=== PATIENT | male | born 1980 | race African-American/Black ===

== ENCOUNTER 2016-11-29 07:43 | Emergency (ER) | payer BC, OTHER ==
[2016-11-29] MEDS ORDERED: BENZONATATE 100 MG CAPSULE PO STA (09:37)
[2016-11-29] MEDS ORDERED: guaiFENesin/DEXTROMETHORPHAN 10 ML UDC PO STA (09:37)
[2016-11-29] MEDS ORDERED: guaiFENesin/DEXTROMETHORPHAN 10 ML UDC ONE (09:40)
[2016-11-29] MEDS ORDERED: BENZONATATE 100 MG CAPSULE PO ONE (09:40)
--- NOTE | 2016-11-29 09:40 | ED Physician Documentation ---
History of Present Illness - Stated complaint Stated Complaint: COUGH - Chief complaint Chief Complaint: General - Additonal information Additional information: hx from pt healthy 36 y/o male cough for 3 weeks pleuritic CP with coughing no fever sore throat [place] kids have stomach flu but no resp sick contacts no travel no leg swelling no PMD Review of Systems Constitutional: denies: Fever, Chills Throat: denies: Sore throat Cardiac: reports: Chest pain / pressure Respiratory: reports: Dyspnea, Cough GI: denies: Abdominal Pain, Nausea, Vomiting, Diarrhea Musculoskeletal: denies: Extremity swelling Endocrine: denies: Easy bruising / bleeding Immunocompromised: denies: Immunocompromised PD PAST MEDICAL HISTORY - Present Medications Home Medications: Ambulatory Orders Medication Instructions Recorded Confirmed Benzonatate [Tessalon] 100 mg PO TID PRN #20 capsule 11/29/16 guaiFENesin/CODEINE [Robitussin AC] 5 - 10 ml PO Q6H PRN #120 udc 11/29/16 - Allergies Allergies/Adverse Reactions: Allergies Allergy/AdvReac Type Severity Reaction Status Date / Time No Known Drug Allergies Allergy Verified 11/29/16 07:52 PD ED PE NORMAL - Vitals Vital signs reviewed: Yes - HEENT HEENT: Atraumatic, Pharynx benign - Neck Neck: Supple, no meningeal sign - Cardiac Cardiac: RRR - Respiratory Respiratory: No respiratory distress, Clear bilaterally - Abdomen Abdomen: Soft, Non tender - Derm Derm: Normal color - Extremities Extremities: Normal ROM s pain, No edema, No calf tenderness / cord - Neuro Neuro: Alert and oriented X 3 Results - Vitals Vitals: Vital Signs - 24 hr 11/29/16 07:50 Temperature 36.7 C Heart Rate 78 Respiratory 14 Rate Blood Pressure 158/81 H O2 Saturation 100 Oxygen O2 Source Room air - Rads (name of study) CXR Radiology: See rad report (neg) PD MEDICAL DECISION MAKING - ED course ED course: no leg pain swelling tachycardia tachypnea hypoxia etc to suggest PE this sounds like a viral infection Departure - Departure Disposition: 01 Home, Self Care Clinical Impression: Bronchitis Condition: Good Instructions: ED URI Viral Prescriptions: guaiFENesin/CODEINE [Robitussin AC] 5 - 10 ml PO Q6H PRN #120 udc PRN Reason: Cough Benzonatate [Tessalon] 100 mg PO TID PRN #20 capsule PRN Reason: to ease cough Comments: The xray was fine - no pneumonia This is likely a viral bronchitis and the symptoms can last for up to a month Being a viral process does not make you any less sick but it means antibiotics will not help Recommend motrin for the pain and any fever and I have prescribed medications to ease your cough Please stop smoking And follow up with your PMD for a blood pressure recheck - it was high today Forms: Activity restrictions
--- NOTE | 2016-11-29 10:23 | XRAY Preliminary Report ---
Exam: XR Chest 2 View PA/LAT IMPRESSION: Normal 2-view chest radiography. [facility] SITE ID: [id number]
--- NOTE | 2016-11-29 10:25 | XRAY Report ---
EXAM: CHEST RADIOGRAPHY EXAM DATE: 11/29/2016 09:49 AM. CLINICAL HISTORY: Cough. COMPARISON: None. TECHNIQUE: 2 views. FINDINGS: Lungs/Pleura: No focal opacities evident. No pleural effusion. No pneumothorax. Normal volumes. Mediastinum: Heart and mediastinal contours are unremarkable. Other: None. IMPRESSION: Normal 2-view chest radiography. [facility] Referring Provider Line: [phone] SITE ID: [id number]
[2016-11-29 10:52] VITALS: BP 138/77
== END 2016-11-29 10:58 | disposition home or self-care (01) ==
LOC: ED 07:43
DX: J40 Bronchitis, not specified as acute or chronic (principal)
CPT/HCPCS: 71020; 99283; A9270

== ENCOUNTER 2018-02-23 19:23 | Emergency (ER) | payer BC, OTHER ==
[2018-02-23 19:51] LABS: BASOPHILS # (AUTO) 0.1 10^3/uL (0.0-0.1); BASOPHILS % (AUTO) 0.7 %; EOSINOPHILS # (AUTO) 0.2 10^3/uL (0.0-0.7); HGB - HEMOGLOBIN 13.9 g/dL (14.0-18.0); LYMPHOCYTES # (AUTO) 3.2 10^3/uL (1.5-3.5); LYMPHOCYTES % (AUTO) 36.6 %; MEAN CORPUSCULAR HEMOGLOBIN 28.9 pg (27.0-31.0); MEAN CORPUSCULAR HGB CONC 34.5 g/dL (32.0-36.0); MEAN CORPUSCULAR VOLUME 83.8 fL (80.0-94.0); MEAN PLATELET VOLUME 9.8 fL (7.4-11.4); MONOCYTES # (AUTO) 0.6 10^3/uL (0.0-1.0); MONOCYTES % (AUTO) 7.2 %; NEUTROPHILS # (AUTO) 4.7 10^3/uL (1.5-6.6); NEUTROPHILS % (AUTO) 53.5 %; PLT - PLATELET COUNT 162 10^3/uL (130-450); RED BLOOD COUNT 4.81 10^6/uL (4.70-6.10); RED CELL DISTRIBUTION WIDTH 13.3 % (12.0-15.0); WHITE BLOOD COUNT 8.7 x10^3/uL (4.8-10.8)
[2018-02-23 20:16] LABS: ALBUMIN 5.2 g/dL (3.2-5.5); ALBUMIN/GLOBULIN RATIO 1.7 (1.0-2.2); CALCIUM 10.2 mg/dL (8.5-10.3); CREATININE 1.5 mg/dL (0.6-1.2); TOTAL PROTEIN 8.3 g/dL (6.7-8.2)
--- NOTE | 2018-02-23 22:40 | ED Physician Documentation ---
PD HPI CHEST PAIN - Stated complaint Stated Complaint: CP/FEELS OFF - Chief complaint Chief Complaint: Cardiac PD PAST MEDICAL HISTORY - Past Medical History Psych: Anxiety - Past Surgical History Past Surgical History: No - Social History Does the pt smoke?: Yes Smoking Status: Current some day smoker Does the pt drink ETOH?: No Does the pt have substance abuse?: No - Immunizations Immunizations are current?: No - POLST Patient has POLST: No - Present Medications Home Medications: Ambulatory Orders Medication Instructions Recorded Confirmed Benzonatate [Tessalon] 100 mg PO TID PRN #20 capsule 11/29/16 guaiFENesin/CODEINE [Robitussin AC] 5 - 10 ml PO Q6H PRN #120 udc 11/29/16 - Allergies Allergies/Adverse Reactions: Allergies Allergy/AdvReac Type Severity Reaction Status Date / Time No Known Drug Allergies Allergy Verified 02/23/18 19:35 - Vitals Vitals: Oxygen O2 Source Room air - Labs Labs: Laboratory Tests 02/23/18 02/23/18 02/23/18 19:48 19:48 19:48 WBC 8.7 RBC 4.81 Hgb 13.9 L Hct 40.3 L MCV 83.8 MCH 28.9 MCHC 34.5 RDW 13.3 Plt Count 162 MPV 9.8 Neut # (Auto) 4.7 Lymph # (Auto) 3.2 [place] # (Auto) 0.6 Eos # (Auto) 0.2 Baso # (Auto) 0.1 Absolute Nucleated RBC 0.01 Nucleated RBC % 0.1 Sodium 138 Potassium 3.8 Chloride 99 L Carbon Dioxide 29 Anion Gap 10.0 BUN 18 Creatinine 1.5 H Estimated GFR (MDRD) 64 L Glucose 88 Calcium 10.2 Total Bilirubin 2.0 H AST 46 H ALT 35 Alkaline Phosphatase 59 Troponin I < 0.04 Total Protein 8.3 H Albumin 5.2 Globulin 3.1 Albumin/Globulin Ratio 1.7 Lipase 33 - Sepsis Event Vital Signs: Oxygen O2 Source Room air Departure - Departure Disposition: 01 Home, Self Care Clinical Impression: Chest pain Qualifiers: Chest pain type: unspecified Qualified Code(s): R07.9 - Chest pain, unspecified Condition: Good Instructions: ED Chest Pain Atypical Unkn Cause, ED Palpitations Follow-Up: [facility] [Provider Group] [facility] [Provider Group] Discharge Date/Time: 02/23/18 23:16
[2018-02-23 23:12] VITALS: BP 150/80
--- NOTE | 2018-02-25 09:21 | ED Physician Documentation ---
PD HPI CHEST PAIN - Stated complaint Stated Complaint: CP/FEELS OFF - Chief complaint Chief Complaint: Cardiac - History obtained from History obtained from: Patient - History of Present Illness Timing - onset: How many hours ago (approximately 1 hour [employer]) Timing - details: Abrupt onset Pain level max: 4 Pain level now: 0 Quality: Pain Location: Substernal Radiation: Other (no radiation) Improved by: Nothing Worsened by: Other (no exacerbating factors) Associated symptoms: Shortness of air, Palpitations Similar symptoms before: Has not had sx before Recently seen: Not recently seen - Additional information Additional information: patient was working [employer], delivering pizzas; as he was driving from delivery back to work, approximately 1 hour [employer], had sudden onset of midline chest discomfort, rapid palpitations, dyspnea. Has not had symptoms before. Symptoms have completely resolved prior to ED arrival. Review of Systems Cardiac: reports: Chest pain / pressure, Palpitations Respiratory: reports: Dyspnea GI: reports: Reviewed and negative Musculoskeletal: denies: Extremity swelling PD PAST MEDICAL HISTORY - Past Medical History Psych: Anxiety - Past Surgical History Past Surgical History: No - Present Medications Home Medications: Ambulatory Orders Medication Instructions Recorded Confirmed Benzonatate [Tessalon] 100 mg PO TID PRN #20 capsule 11/29/16 guaiFENesin/CODEINE [Robitussin AC] 5 - 10 ml PO Q6H PRN #120 udc 11/29/16 - Allergies Allergies/Adverse Reactions: Allergies Allergy/AdvReac Type Severity Reaction Status Date / Time No Known Drug Allergies Allergy Verified 02/23/18 19:35 - Social History Does the pt smoke?: Yes Smoking Status: Current some day smoker Does the pt drink ETOH?: No Does the pt have substance abuse?: No - Immunizations Immunizations are current?: No - POLST Patient has POLST: No PD ED PE NORMAL - Vitals Vital signs reviewed: Yes - General General: Alert and oriented X 3, No acute distress, Well developed/nourished - Cardiac Cardiac: RRR, No murmur, No gallop, No rub - Respiratory Respiratory: No respiratory distress, Clear bilaterally - Abdomen Abdomen: Soft, Non tender - Extremities Extremities: No edema Results - Vitals Vitals: Oxygen O2 Source Room air - EKG (time done) No standard instances Rate: Rate (enter#) (67) Rhythm: NSR Hall: Normal Intervals: Normal CT QRS: Normal Ischemia: Normal ST segments - Labs Labs: Laboratory Tests 02/23/18 02/23/18 02/23/18 19:48 19:48 19:48 WBC 8.7 RBC 4.81 Hgb 13.9 L Hct 40.3 L MCV 83.8 MCH 28.9 MCHC 34.5 RDW 13.3 Plt Count 162 MPV 9.8 Neut # (Auto) 4.7 Lymph # (Auto) 3.2 [place] # (Auto) 0.6 Eos # (Auto) 0.2 Baso # (Auto) 0.1 Absolute Nucleated RBC 0.01 Nucleated RBC % 0.1 Sodium 138 Potassium 3.8 Chloride 99 L Carbon Dioxide 29 Anion Gap 10.0 BUN 18 Creatinine 1.5 H Estimated GFR (MDRD) 64 L Glucose 88 Calcium 10.2 Total Bilirubin 2.0 H AST 46 H ALT 35 Alkaline Phosphatase 59 Troponin I < 0.04 Total Protein 8.3 H Albumin 5.2 Globulin 3.1 Albumin/Globulin Ratio 1.7 Lipase 33 PD MEDICAL DECISION MAKING - ED course Complexity details: reviewed results, re-evaluated patient, considered differential, d/w patient - Sepsis Event Vital Signs: Oxygen O2 Source Room air Departure - Departure Disposition: 01 Home, Self Care Clinical Impression: Chest pain Qualifiers: Chest pain type: unspecified Qualified Code(s): R07.9 - Chest pain, unspecified Condition: Good Instructions: ED Chest Pain Atypical Unkn Cause, ED Palpitations Follow-Up: [facility] [Provider Group] [facility] [Provider Group] Discharge Date/Time: 02/23/18 23:16
== END 2018-02-23 23:16 | disposition home or self-care (01) ==
LOC: ED 19:23
DX: R07.9 Chest pain, unspecified (principal); R94.31 Abnormal electrocardiogram [ECG] [EKG]; F17.200 Nicotine dependence, unspecified, uncomplicated
CPT/HCPCS: 36415; 80053; 83690; 84484; 85025; 93005; 99283

== ENCOUNTER 2020-07-08 07:00 | Outpatient (CLI) | payer OTHER | END 2020-07-08 23:59 | disposition home or self-care (01) | LOC: COV 07:00 | PROVIDERS: ATTEND Family Medicine | DX: R05 Cough (principal); M79.10 Myalgia, unspecified site; R09.81 Nasal congestion; J34.89 Other specified disorders of nose and nasal sinuses; Z20.822 Contact with and (suspected) exposure to COVID-19 ==

== ENCOUNTER 2020-12-31 08:00 | Outpatient (CLI) | payer BC, OTHER | END 2020-12-31 23:59 | disposition home or self-care (01) | LOC: LAB.N 08:00 | PROVIDERS: ATTEND Family Medicine | DX: R07.0 Pain in throat (principal); Z20.822 Contact with and (suspected) exposure to COVID-19 | CPT/HCPCS: 87070 ==

== ENCOUNTER 2022-03-16 08:46 | Day surgery (SDC) | payer BC ==
[2022-03-16] MEDS ORDERED: HYDROmorphone 1 MG/ML CARPUJECT IVP STA ×2 (09:08→11:21)
[2022-03-16] MEDS ORDERED: SODIUM CHLORIDE 0.9% 1,000 ML IV STA (09:08)
[2022-03-16] MEDS ORDERED: ONDANSETRON 4 MG/2 ML VIAL IVP STA (09:08)
[2022-03-16 09:12] LABS: BASOPHILS % (AUTO) 0.1 %; HCT - HEMATOCRIT 41.3 % (42.0-52.0); HGB - HEMOGLOBIN 14.9 g/dL (14.0-18.0); LYMPHOCYTES # (AUTO) 1.2 10^3/uL (1.5-3.5); LYMPHOCYTES % (AUTO) 8.9 %; MEAN CORPUSCULAR HEMOGLOBIN 30.2 pg (27.0-31.0); MEAN CORPUSCULAR HGB CONC 36.1 g/dL (32.0-36.0); MEAN CORPUSCULAR VOLUME 83.6 fL (80.0-94.0); MEAN PLATELET VOLUME 12.2 fL (7.4-11.4); MONOCYTES # (AUTO) 0.8 10^3/uL (0.0-1.0); MONOCYTES % (AUTO) 5.8 %; NEUTROPHILS # (AUTO) 11.8 10^3/uL (1.5-6.6); NEUTROPHILS % (AUTO) 84.8 %; PLT - PLATELET COUNT 150 10^3/uL (130-450); RED BLOOD COUNT 4.94 10^6/uL (4.70-6.10); RED CELL DISTRIBUTION WIDTH 11.9 % (12.0-15.0); WHITE BLOOD COUNT 13.9 x10^3/uL (4.8-10.8)
--- NOTE | 2022-03-16 09:14 | ED Physician Documentation ---
PD HPI ABD PAIN - Stated complaint Stated Complaint: ABD PX - Chief complaint Chief Complaint: Abd Pain - History obtained from History obtained from: Patient - Additional information Additional information: 41-year-old gentleman with no pertinent medical or surgical history developed periumbilical pain last night that was mild but then was awoken by more severe right-sided abdominal pain around 1 AM. He had several episodes of vomiting and diarrhea associated with this. He tried to take Tylenol at 2 AM, but vomited it up. Has not had anything by mouth since. Pain is quite severe. Denies fevers. Review of Systems Ten Systems: 10 systems reviewed and negative Constitutional: denies: Fever, Chills Cardiac: reports: Reviewed and negative Respiratory: reports: Reviewed and negative PD PAST MEDICAL HISTORY - Past Medical History Past Medical History: No Cardiovascular: None Respiratory: None Neuro: None Endocrine/Autoimmune: None GI: None : None HEENT: None Psych: Anxiety Musculoskeletal: None Derm: None - Past Surgical History Past Surgical History: No - Present Medications Home Medications: Ambulatory Orders Medication Instructions Recorded Confirmed No Known Home Medications 03/16/22 03/16/22 - Allergies Allergies/Adverse Reactions: Allergies Allergy/AdvReac Type Severity Reaction Status Date / Time No Known Drug Allergies Allergy Verified 03/16/22 08:49 - Social History Does the pt smoke?: No Smoking Status: Never smoker Does the pt drink ETOH?: Yes Does the pt have substance abuse?: No - Immunizations Immunizations are current?: Yes - POLST Patient has POLST: No PD ED PE NORMAL - Vitals Vital signs reviewed: Yes - General General: Alert and oriented X 3, No acute distress - HEENT HEENT: PERRL, EOMI - Neck Neck: Supple, no meningeal sign, No bony TTP - Cardiac Cardiac: RRR, No murmur - Respiratory Respiratory: No respiratory distress - Abdomen Abdomen: Normal bowel sounds, Other (Focal tenderness in the right lower quadrant with mild diffuse tenderness. He does have rebound tenderness, no guarding.) - Back Back: No CVA TTP, No spinal TTP - Derm Derm: Normal color, Warm and dry - Extremities Extremities: No edema, No calf tenderness / cord - Neuro Neuro: Alert and oriented X 3, Normal speech - Psych Psych: Normal mood, Normal affect Results - Vitals Vitals: Vital Signs - 24 hr 03/16/22 03/16/22 08:51 09:41 Temperature 36.7 C Heart Rate 86 80 Respiratory 18 17 Rate Blood Pressure 163/86 H 143/89 H O2 Saturation 98 96 Oxygen O2 Source Room air - Labs Labs: Laboratory Tests 03/16/22 03/16/22 03/16/22 09:00 09:05 09:05 WBC 13.9 H RBC 4.94 Hgb 14.9 Hct 41.3 L MCV 83.6 MCH 30.2 MCHC 36.1 H RDW 11.9 L Plt Count 150 MPV 12.2 H Neut # (Auto) 11.8 H Lymph # (Auto) 1.2 L [place] # (Auto) 0.8 Eos # (Auto) 0.0 Baso # (Auto) 0.0 Absolute Nucleated RBC 0.00 Nucleated RBC % 0.0 Sodium 139 Potassium 3.8 Chloride 100 L Carbon Dioxide 31 Anion Gap 8.0 BUN 19 Creatinine 1.3 H Estimated GFR (MDRD) 74 L Glucose 128 H Calcium 10.2 Total Bilirubin 2.0 H AST 22 ALT 25 Alkaline Phosphatase 46 Total Protein 8.2 Albumin 5.0 Globulin 3.2 Albumin/Globulin Ratio 1.6 Lipase 39 Urine Color YELLOW Urine Clarity CLEAR Urine pH 6.0 Ur Specific [place] 1.015 Urine Protein NEGATIVE Urine Glucose (UA) NEGATIVE Urine Ketones NEGATIVE Urine Occult Blood NEGATIVE Urine Nitrite NEGATIVE Urine Bilirubin NEGATIVE Urine Urobilinogen 0.2 (NORMAL) Ur Leukocyte Esterase NEGATIVE Ur Microscopic Review NOT INDICATED Urine Culture Comments NOT INDICATED PD MEDICAL DECISION MAKING - ED course ED course: 41-year-old gentleman presents with likely appendicitis by history and exam, my read of the CT is also positive with an appendicolith. I spoke with Dr. Choi, the on-call surgeon at approximately 10:[address] Choi notes it will be a few hours before he can get to the patient as he has clinic. Departure - Departure Disposition: ED Transfer to [facility] Clinical Impression: Appendicitis Condition: Good
[2022-03-16 09:15] LABS: BILIRUBIN,URINE NEGATIVE (NEGATIVE); GLUCOSE, URINE (UA) NEGATIVE (NEGATIVE); KETONES,URINE (UA) NEGATIVE (NEGATIVE); LEUKOCYTE ESTERASE, URINE NEGATIVE (NEGATIVE); NITRITE,URINE NEGATIVE (NEGATIVE); OCCULT BLOOD,URINE NEGATIVE (NEGATIVE); PROTEIN,URINE NEGATIVE (NEGATIVE); UROBILINOGEN,URINE 0.2 (NORMAL) E.U./dL (NORMAL)
[2022-03-16 09:16] LABS: CLARITY,URINE CLEAR (CLEAR)
[2022-03-16 09:28] LABS: ALBUMIN/GLOBULIN RATIO 1.6 (1.0-2.2); CALCIUM 10.2 mg/dL (8.5-10.3); CREATININE 1.3 mg/dL (0.6-1.2); POTASSIUM 3.8 mmol/L (3.5-5.0); TOTAL PROTEIN 8.2 g/dL (6.7-8.2)
[2022-03-16] MEDS ORDERED: PIPERACILLIN/TAZOBACTAM 3.375 GM in SODIUM CHLORIDE 0.9% MINIBAG 100 ML IV STA (10:32)
--- NOTE | 2022-03-16 10:41 | CT Report ---
PROCEDURE: Abdomen/Pelvis W INDICATIONS: IV only, RLQ pain CONTRAST: IV CONTRAST: Optiray 320 ml: 100 PO CONTRAST: *NO PO CONTRAST TECHNIQUE: After the administration of intravenous contrast, 5 mm thick sections acquired from the diaphragms to the symphysis. 5 mm thick coronal and sagittal reformats were acquired. For radiation dose reducti on, the following was used: automated exposure control, adjustment of mA and/or kV according to phuong ent size. COMPARISON: None. FINDINGS: Retrocecal appendix which projects superiorly in the right paracolic gutter with findings of appendic itis, including dilated appendix with appendicoliths at the origin and diffuse wall thickening with m ucosal hyperenhancement and adjacent fat stranding. Small volume free fluid in the right paracolic gu tter. Bowel otherwise normal. Solid abdominal visceral structures demonstrate no acute finding. Left renal hypodense lesion is likely a cyst although it cannot be characterized definitively as such on t he basis of this exam. No acute osseous abnormality. Included portions of the lung bases are clear. IMPRESSION: Acute appendicitis. Left renal masses likely a cyst, although further evaluation is recommended with a nonemergent palpat ion renal ultrasound. Reviewed by: Jacob Levine MD on 03/16/2022 10:39 AM PDT Approved by: Jacob Levine MD on 03/16/2022 10:39 AM PDT Station ID: [id number]
[2022-03-16 11:43] LABS: B. PARAPERTUSSIS- RESP PCR PAN NOT DETECTED; B. PERTUSSIS- RESP PCR PANEL NOT DETECTED; C. PNEUMONIAE- RESP PCR PANEL NOT DETECTED; CORONAVIRUS 229E-RESP PCR NOT DETECTED; CORONAVIRUS HKU1-RESP PCR NOT DETECTED; CORONAVIRUS NL63-RESP PCR NOT DETECTED; CORONAVIRUS OC43-RESP PCR NOT DETECTED; HUMAN METAPNEUMOVIRUS NOT DETECTED; INFLUENZA A- RESP PCR PANEL NOT DETECTED; INFLUENZA B - RESP PCR PANEL NOT DETECTED; M. PNEUMONIAE- RESP PCR PANEL NOT DETECTED; PARAINFLUENZA VIRUS 1 NOT DETECTED; PARAINFLUENZA VIRUS 2 NOT DETECTED; PARAINFLUENZA VIRUS 3 NOT DETECTED; PARAINFLUENZA VIRUS 4 NOT DETECTED; RHINOVIRUS/ENTEROVIRUS NOT DETECTED; RSV- RESP PCR PANEL NOT DETECTED; SARS-CoV-2 -RESP PCR PANEL NOT DETECTED
[2022-03-16] MEDS ORDERED: ACETAMINOPHEN 325 MG TABLET PO PRN (13:41)
[2022-03-16] MEDS ORDERED: SODIUM CHLORIDE FLUSH 0.9% 10 ML SYRINGE IVP PRN (13:41)
[2022-03-16] MEDS ORDERED: ONDANSETRON 4 MG/2 ML VIAL IVP PRN ×3 (13:41→19:29)
[2022-03-16] MEDS ORDERED: D5.45NS W/20 MEQ KCL 1,000 ML IV SCH (14:00)
[2022-03-16] MEDS ORDERED: BUPIVACAINE 0.25% PF 10 ML VIAL ONE (14:40)
[2022-03-16] MEDS ORDERED: ACETAMINOPHEN 1,000 MG/100 ML 1,000 MG/100 ML BAG IV ONE ×2 (14:42→18:41)
[2022-03-16] MEDS ORDERED: HYDROmorphone 1 MG/ML CARPUJECT IVP PRN (14:43)
[2022-03-16] MEDS ORDERED: LACTATED RINGERS 1,000 ML IV ONE (14:44)
[2022-03-16] MEDS ORDERED: ACETAMINOPHEN 1,000 MG/100 ML 100 ML IV ONE (14:44)
[2022-03-16] MEDS ORDERED: SCOPOLAMINE PATCH TOP SCH (15:00)
[2022-03-16] MEDS ORDERED: SCOPOLAMINE PATCH TOP ONE (15:07)
[2022-03-16] MEDS ORDERED: HYDROmorphone 0.5 MG/0.5 ML SYRINGE ONE (15:09)
--- NOTE | 2022-03-16 15:54 | ANESTHESIA ---
Pre-Anesthesia VS, & Labs - Diagnosis appendictis - Procedure laparoscopic appendectomy Vital Signs: Temp Pulse Resp BP Pulse Ox O2 Flow Rate 38.2 C H 91 16 180/84 H 96 03/16/22 14:22 03/16/22 14:22 03/16/22 14:22 03/16/22 14:03/16/22 14:22 Height: 5 ft 10 in Weight (kg): 99.7 kg Body Mass Index: 31.5 BMI Classification: Obese - NPO >8 hours - Lab Results Current Lab Results: Laboratory Tests 03/16/22 09:05: Sodium 139, Potassium 3.8, Chloride 100 L, Carbon Dioxide 31, Anion Gap 8.0, BUN 19, Creatinine 1.3 H, Estimated GFR (MDRD) 74 L, Glucose 128 H, Calcium 10.2, Total Bilirubin 2.0 H, AST 22, ALT 25, Alkaline Phosphatase 46, Total Protein 8.2, Albumin 5.0, Globulin 3.2, Albumin/Globulin Ratio 1.6, Lipase 39 03/16/22 09:05: WBC 13.9 H, RBC 4.94, Hgb 14.9, Hct 41.3 L, MCV 83.6, MCH 30.2, MCHC 36.1 H, RDW 11.9 L, Plt Count 150, MPV 12.2 H, Neut # (Auto) 11.8 H, Lymph # (Auto) 1.2 L, [place] # (Auto) 0.8, Eos # (Auto) 0.0, Baso # (Auto) 0.0, Absolute Nucleated RBC 0.00, Nucleated RBC % 0.0 Lab results reviewed: No Fish Bones: 03/16/22 09:05 03/16/22 09:05 Home Medications and Allergies Home Medications: Ambulatory Orders No Known Home Medications 03/16/22 Active Medications Acetaminophen (Acetaminophen 325 Mg Tablet) 650 mg PO Q4HR PRN PRN Reason: Pain 1 to 4, or Fever Hydromorphone HCl (Hydromorphone 0.5 Mg/0.5 Ml Syringe) 0.5 mg IVP Q2H PRN PRN Reason: Pain 8 to 10 Hydromorphone HCl (Hydromorphone 1 Mg/Ml Carpuject) 1 mg IVP Q2HR PRN PRN Reason: PAIN Potassium Chloride/Dextrose/Sod Cl (D5.45ns W/20 Meq Kcl) 1,000 mls @ 100 mls/hr IV .Q10H SHAWN Piperacillin Sod/Tazobactam (Sod 3.375 gm/ Sodium Chloride) 100 mls @ 200 mls/hr IV Q6H SHAWN Ondansetron HCl (Ondansetron 4 Mg/2 Ml Vial) 4 mg IVP Q6HR PRN PRN Reason: Nausea / Vomiting Scopolamine HBr (Scopolamine Patch) 1 patch TOP Q3D SHAWN Sodium Chloride (Sodium Chloride Flush 0.9% 10 Ml Syringe) 10 ml IVP PRN PRN PRN Reason: NEEDED PER PROVIDER ORDERS Sodium Chloride (Sodium Chloride Flush 0.9% 10 Ml Syringe) 10 ml IVP 0100,0900,1700 SHAWN No Known Home Medications 03/16/22 Allergies/Adverse Reactions: Allergies Allergy/AdvReac Type Severity Reaction Status Date / Time No Known Drug Allergies Allergy Verified 03/16/22 08:49 Anes History & Medical History - Anesthetic History Anesthesia Complications: reports: No previous complications Family history of Anesthesia Complications: Denies Family history of Malignant Hyperthermia: Denies - Medical History Cardiovascular: reports: None Pulmonary: reports: None Gastrointestinal: reports: None Urinary: reports: None Neuro: reports: None Musculoskeletal: reports: None Endocrine/Autoimmune: reports: None Blood Disorders: reports: None Skin: reports: None Smoking Status: Never smoker (vapes) Psychosocial: reports: No issues indicated, Alcohol Exam General: Alert, Oriented x3, Cooperative, Mild distress Dental: WNL, Partials Upper (front left partial plate) Mallampati classification: II Respiratory: Lungs clear, Inspiration Cardiovascular: Regular rate Plan Anesthesia Type: General Consent for Procedure(s) Verified and Reviewed: Yes Code Status: Attempt Resuscitation ASA classification: 2-Mild systemic disease Is this case an emergency?: Yes
[2022-03-16] MEDS ORDERED: PIPERACILLIN/TAZOBACTAM 3.375 GM in SODIUM CHLORIDE 0.9% MINIBAG 100 ML IV SCH (16:00)
[2022-03-16] MEDS ORDERED: LIDOCAINE-MPF 2% 5 ML VIAL ONE (16:04)
[2022-03-16] MEDS ORDERED: PROPOFOL 200 MG/20 ML VIAL IVP ONE (16:04)
[2022-03-16] MEDS ORDERED: ROCURONIUM 50 MG/5 ML VIAL ONE (16:05)
[2022-03-16] MEDS ORDERED: LIDOCAINE MPF 2%-EPI 1:200000 20 ML VIAL ONE (16:33)
[2022-03-16] MEDS ORDERED: PIPERACILLIN/TAZOBACTAM 3.375 GM in SODIUM CHLORIDE 0.9% MINIBAG 100 ML IV ONE (17:06)
--- NOTE | 2022-03-16 17:13 | HISTORY & PHYSICAL EXAMINATION ---
Chief Complaint - Chief Complaint Chief Complaint: right lower abdominal pain History of Present Illness - Admitted From Admitted From:: ed - History Obtained From Records Reviewed: yes History obtained from: pt Exam Limitations: none - History of Present Illness HPI Comment/Other: right lower abdominal pain, not feeling well, fever since last pm History - Past Medical History Cardiovascular: reports: None Respiratory: reports: None Neuro: reports: None Endocrine/Autoimmune: reports: None GI: reports: None : reports: None HEENT: reports: None Psych: reports: None Musculoskeletal: reports: None Derm: reports: None MRSA Hx?: No - POLST Patient has POLST: No Meds/Allgy - Home Medications Home Medications: Ambulatory Orders Medication Instructions Recorded Confirmed No Known Home Medications 03/16/22 03/16/22 - Allergies Allergies/Adverse Reactions: Allergies Allergy/AdvReac Type Severity Reaction Status Date / Time No Known Drug Allergies Allergy Verified 03/16/22 08:49 Review of Systems - Constitutional Constitutional: reports: Fever, Malaise, Poor appetite (10 pt ros as above otherwise unremarkable) Exam - Vital Signs Vital Signs: Vital Signs x48h Temp Pulse Resp BP Pulse Ox 03/16/22 14:22 38.2 C H 91 16 180/84 H 96 03/16/22 14:00 80 18 171/95 H 99 03/16/22 13:00 81 19 140/76 H 95 03/16/22 11:00 36.7 C 70 21 150/86 H 99 03/16/22 09:41 80 17 143/89 H 96 - Physical Exam General Appearance: positive: No acute distress, Alert Eyes Bilateral: positive: PERRL, EOMI, No scleral icterus ENT: positive: No signs of dehydration Neck: positive: No JVD, Trachea midline Respiratory: positive: No respiratory distress, Breath sounds nml Cardiovascular: positive: Regular rate & rhythm Abdomen: positive: Other (right lower quadrant tenderness present) Neurologic/Psychiatric: positive: Oriented x3 Conclusion/Plan - Problem List (1) Appendicitis Conclusion/Plan: plan appendectomy. parq held and consent obtained - Lab Results Lab results reviewed: No Fish Bones: 03/16/22 09:05 03/16/22 09:05
[2022-03-16] MEDS ORDERED: fentaNYL 100 MCG/2 ML VIAL ONE (17:19)
[2022-03-16] MEDS ORDERED: ePHEDrine 50 MG/ML VIAL IVP ONE (17:58)
[2022-03-16] MEDS ORDERED: BUPIVACAINE 0.25% PF 10 ML VIAL SUBQ ONE ×2 (18:01)
[2022-03-16] MEDS ORDERED: KETOROLAC 30 MG/ML VIAL ONE (18:30)
[2022-03-16] MEDS ORDERED: DEXAMETHASONE 4 MG/ML VIAL ONE (18:32)
[2022-03-16] MEDS ORDERED: ONDANSETRON 4 MG/2 ML VIAL ONE (18:32)
[2022-03-16] MEDS ORDERED: SUGAMMADEX 200 MG/2 ML VIAL IVP ONE (18:34)
[2022-03-16] MEDS ORDERED: LACTATED RINGERS 500 ML IV ONE (18:48)
[2022-03-16] MEDS ORDERED: ACETAMINOPHEN 500 MG TABLET PO PRN (18:51)
--- NOTE | 2022-03-16 18:57 | OPERATIVE REPORT ---
Operative Report - General Procedure Date: 03/16/22 Planned Procedure: laparoscopic appendectomy Pre-Op Diagnosis: appendicitis Procedure Performed: laparoscopic appendectomy Post Op Diagnosis: appendicitis - Procedure Note Primary Surgeon: jacquelin lincoln Anesthesia Technique: General ET tube, Local Pathology: appendix Estimated Blood Loss (mL): 5 Drain/Tube Type: Ellis drain Indications: appendicitis Findings: green thick fluid in abdomen gangrenous appendix Complications: none - Other Other Information/Narrative: The patient was properly identified brought to the operating room and placed in supine position. The patient was previously given antibiotics. Sequential compression devices were placed. General endotracheal anesthesia was induced. The patient was prepped and draped in a sterile fashion. Local anesthetic was given to incision areas. An infraumbilical incision was made in and proceeded down to the fascia. The fascia was incised lifted upwards and abdomen entered with a Veress needle. CO2 was insufflated to a pressure of 15. A 12 mm trocar was placed with 30 degree scope. There was no evidence of injury from Veress needle or trocar placement. Under direct vision a 5 mm trocar was placed suprapubic and a 5 mm trocar was placed in the right upper quadrant. Appendix was identified and retracted anteriorly. Peritoneal attachments were taken down with careful use of cautery. Appendix was mobilized more anterior. A plane was then created between the mesoappendix and the appendix at the cecum. Appendix was divided with an Endo BOLA intestinal load to include up a small portion of the cecum. The mesoappendix was then divided with an Endo BOLA vascular load. There was secure closure at the cecum and hemostasis was assured. The appendix was brought out. The abdomen was thoroughly irrigated and hemostasis again assured. A 15 ellis drain was placed through the suprapubic trochar site. Trochars were removed under direct vision. Fascia at the infraumbilical site was closed with a running 0 Vicryl suture. Subcutaneous tissue was irrigated and skin at the infraumbilical site loosely reapproximated with buried interrupted 4-0 Monocryl. Drain was secured with a 3 O nylon. Dressings were applied. The patient tolerated the procedure well was awakened and brought to recovery in good condition.
--- NOTE | 2022-03-16 19:05 | ANESTHESIA POST OP EVALUATION ---
Anesthesia Post Eval - Post Anesthesia Eval Vitals: Last Vital Signs Temp 37.3 C 03/16/22 19:00 Pulse 89 03/16/22 19:00 Resp 20 03/16/22 19:00 BP 122/69 03/16/22 19:00 Pulse Ox 98 03/16/22 19:00 O2 Flow Rate CV Function Including HR & BP: Stable Pain Control: Satisfactory Nausea & Vomiting: Negative Mental Status: Baseline Respiratory Status: Airway Patent Hydration Status: Satisfactory Anesthesia Complications: None
[2022-03-16] MEDS ORDERED: NALOXONE 0.4 MG/ML VIAL IVP PRN (19:29)
[2022-03-16] MEDS ORDERED: ePHEDrine 50 MG/ML VIAL IVP PRN (19:29)
[2022-03-16] MEDS ORDERED: ATROPINE ABBOJECT 1 MG/10 ML SYRINGE IVP PRN (19:29)
[2022-03-16] MEDS ORDERED: MORPHINE 2 MG/ML CARPUJECT IVP PRN (19:29)
[2022-03-16] MEDS ORDERED: METOCLOPRAMIDE 10 MG/2 ML VIAL IVP PRN (19:29)
[2022-03-16] MEDS ORDERED: fentaNYL 100 MCG/2 ML VIAL IVP PRN (19:29)
[2022-03-16] MEDS ORDERED: HYDROmorphone 0.5 MG/0.5 ML SYRINGE IVP PRN (19:29)
[2022-03-16] MEDS: HYDROmorphone 0.5 MG/0.5 ML SYRINGE IVP PRN (19:48)
[2022-03-16] MEDS ORDERED: LACTATED RINGERS 1,000 ML IV SCH (20:00)
[2022-03-16] MEDS: SODIUM CHLORIDE FLUSH 0.9% 10 ML SYRINGE IVP SCH (20:01)
[2022-03-16] MEDS: D5.45NS W/20 MEQ KCL 1,000 ML IV SCH (20:15)
[2022-03-16] MEDS: HYDROcod/ACETAM 5/325 MG TABLET PO PRN (21:08)
[2022-03-16] MEDS: PIPERACILLIN/TAZOBACTAM 3.375 GM in SODIUM CHLORIDE 0.9% MINIBAG 100 ML IV SCH (22:45)
[2022-03-17] MEDS: HYDROcod/ACETAM 5/325 MG TABLET PO PRN ×3 (01:25→10:53)
[2022-03-17] MEDS: SODIUM CHLORIDE FLUSH 0.9% 10 ML SYRINGE IVP SCH ×2 (01:26→07:50)
[2022-03-17] MEDS: D5.45NS W/20 MEQ KCL 1,000 ML IV SCH (04:12)
[2022-03-17] MEDS: PIPERACILLIN/TAZOBACTAM 3.375 GM in SODIUM CHLORIDE 0.9% MINIBAG 100 ML IV SCH ×2 (05:55→10:59)
[2022-03-17] MEDS: HYDROmorphone 0.5 MG/0.5 ML SYRINGE IVP PRN (07:50)
--- NOTE | 2022-03-17 11:43 | PROVIDER PROGRESS NOTE ---
Subjective - Prog Note Date Prog Note Date: 03/17/22 - Subjective Pt reports feeling: Improved (denies nausea) Objective - Vital Signs/Intake & Output Vital Signs: Vital Signs x48h Temp Pulse Pulse Resp BP BP Pulse Ox 03/17/22 07:46 37.3 C 81 16 131/79 H 95 03/17/22 04:14 36.9 C 73 16 124/67 95 Intake & Output: Intake & Output 03/14/22 03/15/22 03/16/22 03/17/22 23:59 23:59 23:59 23:59 Intake Total 2357.916 2575.001 Output Total 45 60 Balance 2312.916 2515.001 - Objective General Appearance: positive: No acute distress, Alert Eyes Bilateral: positive: PERRL, EOMI Respiratory: positive: No respiratory distress Abdomen: positive: Non-tender, No distention, Other (chidi serosanguinous) Neurologic/Psychiatric: positive: Oriented x3 - Lab Results Fish Bones: 03/16/22 09:05 03/16/22 09:05 Other Labs: Lab Results x24hrs 03/16/22 Range/Units 10:41 Nasal Adenovirus (PCR) NOT DETECTED Nasal B. parapertussis DNA (PCR) NOT DETECTED Nasal Coronavir 229E PCR NOT DETECTED Nasal Coronavir HKU1 PCR NOT DETECTED Nasal Coronavir NL63 PCR NOT DETECTED Nasal Coronavir OC43 PCR NOT DETECTED Nasal Enterovir/Rhinovir PCR NOT DETECTED Nasal Influenza B PCR NOT DETECTED Nasal Influenza A PCR NOT DETECTED Nasal Parainfluen 1 PCR NOT DETECTED Nasal Parainfluen 2 PCR NOT DETECTED Nasal Parainfluen 3 PCR NOT DETECTED Nasal Parainfluen 4 PCR NOT DETECTED Nasal RSV (PCR) NOT DETECTED Nasal B.pertussis DNA PCR NOT DETECTED Nasal C.pneumoniae (PCR) NOT DETECTED Juan Human Metapneumo PCR NOT DETECTED Nasal M.pneumoniae (PCR) NOT DETECTED Nasal SARS-CoV-2 (PCR) NOT DETECTED Assessment/Plan - Problem List (1) Appendicitis Impression: doing well d/c drain d/c home
[2022-03-17 12:31] VITALS: BP 149/73
== END 2022-03-17 13:24 | disposition home or self-care (01) ==
LOC: ED 08:46 → SDS 13:41 → MS2 19:36 → SDS 03-17 13:24
PROVIDERS: ATTEND Surgery
PROC: 0DTJ4ZZ Resection of Appendix, Percutaneous Endoscopic Approach (ICD-10-PCS; principal; 2022-03-16 16:30)
DX: K35.80 Unspecified acute appendicitis (principal); E66.9 Obesity, unspecified; Z20.822 Contact with and (suspected) exposure to COVID-19; Z68.31 Body mass index [BMI] 31.0-31.9, adult
CPT/HCPCS: 36415; 44970; 74177; 80053; 81003; 83690; 85025; 87633; A9270; J0131; J1170; J3490; J7120; Q9967; 81001; 87086

== ENCOUNTER 2023-09-20 02:42 | Outpatient (CLI) | payer BC | END 2023-09-23 23:59 | disposition short-term general hospital (02) | LOC: EMS 02:42 | DX: R07.89 Other chest pain (principal); R06.00 Dyspnea, unspecified; R20.0 Anesthesia of skin | CPT/HCPCS: A0425; A0427 ==